=== PATIENT | female | born 1955 | race Caucasian/White ===

== ENCOUNTER → 2020-04-17 | Outpatient (CLI) | payer OTHER ==
[~2020-04-17] MED LIST: ACTOS30 MG PO; ATIVAN0.5 MG PO; AUGMENTIN 500-1 EACH PO; BENTYL 10MG CAP10 MG PO; BENTYL 20MG TAB20 MG PO; BUPROPION XL300 MG PO; DITROPAN 5 MG TA5 MG PO; IMITREX100 MG PO; LOPRESSOR100 MG PO; LORCET PLUS 7.1 EACH PO; NAMENDA10 MG PO; NEURONTIN300 MG PO; NORCO 5-325 TA1 EACH PO; OMNICEF 300 MG300 MG PO; REQUIP0.25 MG PO; TRAZODONE HCL150 MG PO; ZOLOFT100 MG PO
== END ==
LOC: KOH-I 09:17
DX: S92.351A Displaced fracture of fifth metatarsal bone, right foot, initial encounter for closed fracture (principal); R93.6 Abnormal findings on diagnostic imaging of limbs; X58.XXXA Exposure to other specified factors, initial encounter
CPT/HCPCS: 73630

== ENCOUNTER → 2020-06-01 | Outpatient (CLI) | payer OTHER ==
[2020-06-01 10:34] LABS: BUN/CREATININE RATIO 38 (0-10)
== END ==
LOC: EXRD 05-24 08:30 → MRI 05-24 09:00
PROVIDERS: Nurse Practitioner Family
DX: E78.5 Hyperlipidemia, unspecified (principal); S22.088A Other fracture of T11-T12 vertebra, initial encounter for closed fracture; M81.0 Age-related osteoporosis without current pathological fracture; Z98.890 Other specified postprocedural states; X58.XXXA Exposure to other specified factors, initial encounter
CPT/HCPCS: 36415; 72146; 77080; 80053; 80061

== ENCOUNTER → 2020-07-21 | Outpatient (CLI) | payer OTHER | LOC: EXRD 07-12 11:00 | DX: R60.0 Localized edema (principal) | CPT/HCPCS: 93970 ==

== ENCOUNTER 2020-08-03 21:11 | Emergency (ER) | payer OTHER ==
[~2020-08-03 21:11] MED LIST changes: -AUGMENTIN 500-1 EACH PO
[2020-08-04 00:04] LABS: HEMOGLOBIN 10.5 gm/dl (12.3-15.3); RED BLOOD COUNT 3.48 M/UL (4.00-5.10)
[2020-08-04 00:22] LABS: BUN/CREATININE RATIO 22 (0-10)
[2020-08-04] MEDS ORDERED: AUGMENTIN 500-1 EACH PO (01:05)
== END 2020-08-04 01:25 | disposition home or self-care (01) ==
LOC: ER1 21:11
PROVIDERS: Family Medicine
DX: F03.90 Unspecified dementia, unspecified severity, without behavioral disturbance, psychotic disturbance, mood disturbance, and anxiety (principal); N28.9 Disorder of kidney and ureter, unspecified; J45.909 Unspecified asthma, uncomplicated; I10 Essential (primary) hypertension; E11.9 Type 2 diabetes mellitus without complications; Z88.8 Allergy status to other drugs, medicaments and biological substances; Z79.01 Long term (current) use of anticoagulants; Z79.899 Other long term (current) drug therapy
CPT/HCPCS: 80053; 81001; 82550; 82553; 83605; 83690; 83874; 84484; 85025; 87086; 93005; 99285

== ENCOUNTER → 2021-01-25 | Outpatient (CLI) | payer OTHER ==
[~2021-01-25] MED LIST changes: +AUGMENTIN 500-1 EACH PO
== END ==
LOC: KOH-I 09:28
DX: M79.671 Pain in right foot (principal); M25.571 Pain in right ankle and joints of right foot; S82.51XA Displaced fracture of medial malleolus of right tibia, initial encounter for closed fracture; S82.831A Other fracture of upper and lower end of right fibula, initial encounter for closed fracture
CPT/HCPCS: 73610; 73630